=== PATIENT | male | born 1955 | race Caucasian/White ===

== ENCOUNTER → 2017-09-09 | Outpatient (REF) | payer BC ==
[~2017-09-09] MED LIST: ASPI1TAB PO; CHLO25TA PO; LISI-538 PO; RANI15TA PO
[2017-09-09 12:32] LABS: ALBUMIN 3.6 GM/DL (3.2-5.2); ALKALINE PHOSPHATASE 78 U/L (45-117); ALT/SGPT 23 U/L (12-78); ANION GAP 7 MEQ/L (8-16); AST/SGOT 9 U/L (7-37); BILIRUBIN,TOTAL 0.3 MG/DL (0.2-1.0); BLOOD UREA NITROGEN 15 MG/DL (7-18); CALCIUM LEVEL 8.8 MG/DL (8.8-10.2); CARBON DIOXIDE LEVEL 26 MEQ/L (21-32); CHLORIDE LEVEL 108 MEQ/L (98-107); CHOLESTEROL LEVEL 134 MG/DL (<200); GLOMERULAR FILTRATION RATE > 60.0 (>49); GLUCOSE, FASTING 111 MG/DL (80-110); POTASSIUM SERUM 4.6 MEQ/L (3.5-5.1); SODIUM LEVEL 141 MEQ/L (136-145); TOTAL PROTEIN 6.6 GM/DL (6.4-8.2); TRIGLYCERIDES LEVEL 60 MG/DL (<150)
== END ==
LOC: M SFHCCLAY 07:07
PROVIDERS: ATTEND Family Medicine
DX: I10 Essential (primary) hypertension (principal); Z12.5 Encounter for screening for malignant neoplasm of prostate; Z00.00 Encounter for general adult medical examination without abnormal findings
CPT/HCPCS: 80053; 80061; 84443; G0103

== ENCOUNTER → 2018-03-31 | Outpatient (REF) | payer BC ==
[2018-03-31 13:04] LABS: ALBUMIN 3.9 GM/DL (3.2-5.2); ALBUMIN/GLOBULIN RATIO 1.34 (1.00-1.93); ALKALINE PHOSPHATASE 85 U/L (45-117); ALT/SGPT 23 U/L (12-78); ANION GAP 11 MEQ/L (8-16); AST/SGOT 16 U/L (7-37); BILIRUBIN,TOTAL 0.5 MG/DL (0.2-1.0); BLOOD UREA NITROGEN 21 MG/DL (7-18); CARBON DIOXIDE LEVEL 23 MEQ/L (21-32); CHLORIDE LEVEL 104 MEQ/L (98-107); CHOLESTEROL LEVEL 116 MG/DL (<200); CHOLESTEROL RISK RATIO 3.515 (<5); CREATININE FOR GFR 0.93 MG/DL (0.70-1.30); GLOMERULAR FILTRATION RATE > 60.0 (>49); GLUCOSE, FASTING 110 MG/DL (70-100); HDL CHOLESTEROL 33 MG/DL (>40); LDL CHOLESTEROL 68.6 MG/DL (<100); NON-HDL-C 83 MG/DL; POTASSIUM SERUM 4.3 MEQ/L (3.5-5.1); PSA SCREENING 1.92 NG/ML (< 4.0); SODIUM LEVEL 138 MEQ/L (136-145); TOTAL PROTEIN 6.8 GM/DL (6.4-8.2); TRIGLYCERIDES LEVEL 72 MG/DL (<150)
[2018-03-31 18:22] LABS: HEMATOCRIT 43.3 % (42.0-52.0); HEMOGLOBIN 15.2 g/dl (13.5-17.5); MEAN CORPUSCULAR HEMOGLOBIN 31.8 pg (27.0-33.0); MEAN CORPUSCULAR HGB CONC 35.1 g/dl (32.0-36.5); MEAN CORPUSCULAR VOLUME 90.6 fl (80.0-96.0); PLATELET COUNT, AUTOMATED 156 10^3/uL (150-450); RED BLOOD COUNT 4.78 10^6/uL (4.30-6.10); RED CELL DISTRIBUTION WIDTH 12.4 % (11.5-14.5); WHITE BLOOD COUNT 6.3 10^3/uL (4.0-10.0)
== END ==
LOC: M SFHCCLAY 07:10
DX: K30 Functional dyspepsia (principal); I10 Essential (primary) hypertension; E78.6 Lipoprotein deficiency; Z12.5 Encounter for screening for malignant neoplasm of prostate
CPT/HCPCS: 80053

== ENCOUNTER → 2019-03-30 | Outpatient (REF) | payer BC ==
[~2019-03-30] MED LIST changes: -ASPI1TAB PO; +ASPI81TA26 PO; +CHLO125TA PO; -CHLO25TA PO
[2019-03-30 13:24] LABS: ALBUMIN 3.7 GM/DL (3.2-5.2); ALT/SGPT 27 U/L (12-78); BILIRUBIN,TOTAL 0.5 MG/DL (0.2-1.0); BLOOD UREA NITROGEN 15 MG/DL (7-18); CALCIUM LEVEL 8.9 MG/DL (8.8-10.2); CARBON DIOXIDE LEVEL 27 MEQ/L (21-32); CHLORIDE LEVEL 101 MEQ/L (98-107); CHOLESTEROL LEVEL 117 MG/DL (<200); CHOLESTEROL RISK RATIO 3.078 (<5); GLOMERULAR FILTRATION RATE > 60.0 (>49); GLUCOSE, FASTING 113 MG/DL (70-100); HDL CHOLESTEROL 38 MG/DL (>40); LDL CHOLESTEROL 64 MG/DL (<100); NON-HDL-C 79 MG/DL; POTASSIUM SERUM 4.3 MEQ/L (3.5-5.1); SODIUM LEVEL 136 MEQ/L (136-145); TOTAL PROTEIN 6.7 GM/DL (6.4-8.2); TRIGLYCERIDES LEVEL 73 MG/DL (<150)
== END ==
LOC: M SFHCCLAY 07:08
PROVIDERS: ATTEND Family Medicine
DX: I10 Essential (primary) hypertension (principal)
CPT/HCPCS: 80053; 80061; G0103

== ENCOUNTER → 2019-05-14 | Outpatient (REF) | payer BC ==
[2019-05-14 14:06] LABS: BASO % 0.3 % (0.0-1.0); EOS # 0.1 10^3/uL (0.0-0.50); EOS % 1.4 % (0.0-3.0); HEMATOCRIT 47.5 % (42.0-52.0); HEMOGLOBIN 16.6 g/dl (13.5-17.5); LYMPH # 1.5 10^3/uL (1.5-4.5); LYMPH % 25.9 % (24.0-44.0); MEAN CORPUSCULAR HEMOGLOBIN 31.6 pg (27.0-33.0); MEAN CORPUSCULAR HGB CONC 34.9 g/dl (32.0-36.5); MEAN CORPUSCULAR VOLUME 90.3 fl (80.0-96.0); MONO # 0.3 10^3/uL (0.0-0.8); MONO % 5.2 % (0.0-5.0); NEUTROPHILS # 3.9 10^3/uL (1.8-7.7); NEUTROPHILS % 66.5 % (36.0-66.0); PLATELET COUNT, AUTOMATED 115 10^3/uL (150-450); RED BLOOD COUNT 5.26 10^6/uL (4.30-6.10); WHITE BLOOD COUNT 5.8 10^3/uL (4.0-10.0)
[2019-05-14 14:27] LABS: ERYTHROCYTE SEDIMENTATION RATE 1 mm/hr (0-20)
[2019-05-14 14:34] LABS: RHEUMATOID FACTOR QUANT < 10.0 IU/ML (<15.0)
[2019-05-15 14:07] LABS: ANTINUCLEAR ANTIBODIES DIRECT Negative (Negative)
== END ==
LOC: M SFHCCLAY 07:03
PROVIDERS: ATTEND Family Medicine
DX: M25.50 Pain in unspecified joint (principal)

== ENCOUNTER → 2019-11-01 | Outpatient (REF) | payer BC ==
[2019-11-01 12:46] LABS: ALBUMIN 4.1 GM/DL (3.2-5.2); ALT/SGPT 28 U/L (12-78); BILIRUBIN,TOTAL 0.6 MG/DL (0.2-1.0); BLOOD UREA NITROGEN 17 MG/DL (7-18); CALCIUM LEVEL 9.1 MG/DL (8.8-10.2); CARBON DIOXIDE LEVEL 25 MEQ/L (21-32); CHLORIDE LEVEL 104 MEQ/L (98-107); CHOLESTEROL LEVEL 128 MG/DL (<200); CHOLESTEROL RISK RATIO 3.657 (<5); CREATININE FOR GFR 0.94 MG/DL (0.70-1.30); GLOMERULAR FILTRATION RATE > 60.0 (>49); GLUCOSE, FASTING 105 MG/DL (70-100); HDL CHOLESTEROL 35 MG/DL (>40); LDL CHOLESTEROL 64 MG/DL (<100); NON-HDL-C 93 MG/DL; POTASSIUM SERUM 4.4 MEQ/L (3.5-5.1); SODIUM LEVEL 136 MEQ/L (136-145); TRIGLYCERIDES LEVEL 143 MG/DL (<150)
== END ==
LOC: M SFHCCLAY 07:13
PROVIDERS: ATTEND Family Medicine
DX: I10 Essential (primary) hypertension (principal); E78.00 Pure hypercholesterolemia, unspecified

== ENCOUNTER → 2020-05-01 | Outpatient (REF) | payer BC ==
[2020-05-01 11:56] LABS: APPEARANCE, URINE CLEAR (CLEAR); BACTERIA, URINE AUTO NEGATIVE (NEGATIVE); BILIRUBIN, URINE AUTO NEGATIVE (NEGATIVE); BLOOD, URINE BLOOD 1+ (NEGATIVE); COLOR, URINE YELLOW (YELLOW); GLUCOSE, URINE (UA) AUTO NEGATIVE (NEGATIVE); KETONE, URINE AUTO NEGATIVE (NEGATIVE); LEUKOCYTE ESTERASE, URINE AUTO NEGATIVE (NEGATIVE); NITRITE, URINE AUTO NEGATIVE (NEGATIVE); PROTEIN, URINE AUTO NEGATIVE (NEGATIVE); RBC, URINE AUTO 3 /HPF (0-3); SPECIFIC GRAVITY URINE AUTO 1.011 (1.002-1.035); SQUAMOUS EPITHELIAL CELL UR AU 0 /HPF (0-6); UROBILINOGEN, URINE AUTO 0.2 mg/dL (0.0-2.0); WBC, URINE AUTO 0 /HPF (0-3)
[2020-05-01 11:59] LABS: BASO % 0.3 % (0.0-1.0); EOS # 0.1 10^3/uL (0.0-0.5); HEMATOCRIT 44.8 % (42.0-52.0); LYMPH # 1.4 10^3/uL (1.5-5.0); LYMPH % 23.8 % (24.0-44.0); MEAN CORPUSCULAR HEMOGLOBIN 31.9 pg (27.0-33.0); MEAN CORPUSCULAR HGB CONC 35.7 g/dl (32.0-36.5); MEAN CORPUSCULAR VOLUME 89.4 fl (80.0-96.0); MONO # 0.3 10^3/uL (0.0-0.8); MONO % 4.7 % (0.0-5.0); NEUTROPHILS # 4.1 10^3/uL (1.5-8.5); NEUTROPHILS % 68.7 % (36.0-66.0); PLATELET COUNT, AUTOMATED 131 10^3/uL (150-450); RED BLOOD COUNT 5.01 10^6/uL (4.30-6.10)
[2020-06-04 10:29] LABS: ERYTHROCYTE SEDIMENTATION RATE 5 mm/hr (0-20)
[2020-06-25 13:22] LABS: ANA (HEP2) SEE SEPARATE REPORT; CYCLIC CITRULLINATED PEPTIDE See Separate Report UNITS; Lyme Disease IgG/IgM Antibodie See Separate Report
== END ==
LOC: M SFHCCLAY 07:06
PROVIDERS: ATTEND Physician Assistant
DX: Z01.84 Encounter for antibody response examination (principal); I10 Essential (primary) hypertension; M25.50 Pain in unspecified joint; R73.01 Impaired fasting glucose; Z12.5 Encounter for screening for malignant neoplasm of prostate
CPT/HCPCS: 80053; 80061; 81001; 82306; 82607; 82746; 83036; 84439; 84443; 85025; 85652; 86038; 86140; 86200; 86431; 86617; 86769; G0103

== ENCOUNTER → 2020-09-15 | Outpatient (REF) | payer BC ==
[2020-09-15 11:27] LABS: BASO % 0.3 % (0.0-1.0); EOS # 0.2 10^3/uL (0.0-0.5); HEMOGLOBIN 15.7 g/dl (13.5-17.5); LYMPH # 1.6 10^3/uL (1.5-5.0); LYMPH % 27.5 % (24.0-44.0); MEAN CORPUSCULAR HEMOGLOBIN 30.7 pg (27.0-33.0); MEAN CORPUSCULAR HGB CONC 34.1 g/dl (32.0-36.5); MONO # 0.4 10^3/uL (0.0-0.8); NEUTROPHILS # 3.7 10^3/uL (1.5-8.5); NEUTROPHILS % 62.7 % (36.0-66.0); PLATELET COUNT, AUTOMATED 133 10^3/uL (150-450); RED BLOOD COUNT 5.11 10^6/uL (4.30-6.10)
[2020-09-15 12:06] LABS: HEMOGLOBIN A1c 5.4 %
[2020-09-15 12:09] LABS: ALBUMIN 3.9 GM/DL (3.2-5.2); ALT/SGPT 33 U/L (12-78); BILIRUBIN,TOTAL 0.5 MG/DL (0.2-1.0); BLOOD UREA NITROGEN 20 MG/DL (7-18); CALCIUM LEVEL 9.5 MG/DL (8.8-10.2); CARBON DIOXIDE LEVEL 26 MEQ/L (21-32); CHLORIDE LEVEL 104 MEQ/L (98-107); CHOLESTEROL LEVEL 130 MG/DL (<200); CHOLESTEROL RISK RATIO 3.714 (<5); CREATININE FOR GFR 0.94 MG/DL (0.70-1.30); GLOMERULAR FILTRATION RATE > 60.0 (>49); GLUCOSE, FASTING 101 MG/DL (70-100); HDL CHOLESTEROL 35 MG/DL (>40); LDL CHOLESTEROL 67 MG/DL (<100); NON-HDL-C 95 MG/DL; POTASSIUM SERUM 4.2 MEQ/L (3.5-5.1); SODIUM LEVEL 136 MEQ/L (136-145); TOTAL PROTEIN 6.9 GM/DL (6.4-8.2); TRIGLYCERIDES LEVEL 139 MG/DL (<150)
== END ==
LOC: M SFHCCLAY 07:16
PROVIDERS: ATTEND Physician Assistant
DX: I10 Essential (primary) hypertension (principal); R73.01 Impaired fasting glucose

== ENCOUNTER → 2020-11-24 | Outpatient (REF) | payer MEDICARE, BC ==
[~2020-11-24] MED LIST changes: -LISI-538 PO; +LISI20TA33 PO
[2020-11-24 12:38] LABS: APPEARANCE, URINE CLEAR (CLEAR); BACTERIA, URINE AUTO NEGATIVE (NEGATIVE); BILIRUBIN, URINE AUTO NEGATIVE (NEGATIVE); BLOOD, URINE BLOOD NEGATIVE (NEGATIVE); COLOR, URINE YELLOW (YELLOW); GLUCOSE, URINE (UA) AUTO NEGATIVE (NEGATIVE); KETONE, URINE AUTO NEGATIVE (NEGATIVE); LEUKOCYTE ESTERASE, URINE AUTO NEGATIVE (NEGATIVE); MUCUS, URINE SMALL (NEGATIVE); NITRITE, URINE AUTO NEGATIVE (NEGATIVE); PROTEIN, URINE AUTO NEGATIVE (NEGATIVE); RBC, URINE AUTO 0 /HPF (0-3); SPECIFIC GRAVITY URINE AUTO 1.017 (1.002-1.035); SQUAMOUS EPITHELIAL CELL UR AU 0 /HPF (0-6); WBC, URINE AUTO 0 /HPF (0-3)
== END ==
LOC: M SFHCCLAY 07:35
PROVIDERS: ATTEND Physician Assistant
DX: R35.0 Frequency of micturition (principal)
CPT/HCPCS: 81001; 87086; G0463

== ENCOUNTER → 2021-02-09 | Outpatient (REF) | payer MEDICARE, BC ==
[2021-02-09 11:52] LABS: BASO % 0.5 % (0.0-1.0); EOS # 0.2 10^3/uL (0.0-0.5); EOS % 2.3 % (0.0-3.0); HEMOGLOBIN 16.3 g/dl (13.5-17.5); LYMPH # 1.9 10^3/uL (1.5-5.0); MEAN CORPUSCULAR HEMOGLOBIN 31.2 pg (27.0-33.0); MEAN CORPUSCULAR HGB CONC 34.7 g/dl (32.0-36.5); MONO # 0.4 10^3/uL (0.0-0.8); MONO % 4.8 % (2.0-8.0); NEUTROPHILS # 4.9 10^3/uL (1.5-8.5); PLATELET COUNT, AUTOMATED 147 10^3/uL (150-450); RED BLOOD COUNT 5.22 10^6/uL (4.30-6.10); WHITE BLOOD COUNT 7.5 10^3/uL (4.0-10.0)
[2021-02-09 15:32] LABS: ALBUMIN 4.2 GM/DL (3.2-5.2); ALT/SGPT 33 U/L (12-78); BILIRUBIN,TOTAL 0.5 MG/DL (0.2-1.0); BLOOD UREA NITROGEN 20 MG/DL (7-18); CALCIUM LEVEL 9.9 MG/DL (8.8-10.2); CARBON DIOXIDE LEVEL 27 MEQ/L (21-32); CHLORIDE LEVEL 102 MEQ/L (98-107); CHOLESTEROL LEVEL 150 MG/DL (<200); CREATININE FOR GFR 0.97 MG/DL (0.70-1.30); GLOMERULAR FILTRATION RATE > 60.0 (>49); GLUCOSE, FASTING 119 MG/DL (70-100); HDL CHOLESTEROL 40 MG/DL (>40); LDL CHOLESTEROL 81 MG/DL (<100); NON-HDL-C 110 MG/DL; SODIUM LEVEL 137 MEQ/L (136-145); TOTAL 25(OH) VITAMIN D 28.9 NG/ML (30.0-100.0); TOTAL PROTEIN 6.8 GM/DL (6.4-8.2); TRIGLYCERIDES LEVEL 145 MG/DL (<150)
[2021-02-09 17:43] LABS: HEMOGLOBIN A1c 5.1 %
== END ==
LOC: M SFHCCLAY 07:01
PROVIDERS: ATTEND Physician Assistant
DX: D69.6 Thrombocytopenia, unspecified (principal); R73.01 Impaired fasting glucose; E55.9 Vitamin D deficiency, unspecified; E78.00 Pure hypercholesterolemia, unspecified

== ENCOUNTER → 2021-05-06 | Outpatient (CLI) | payer MEDICARE, BC ==
--- NOTE | 2021-05-06 13:45 | REP ---
INDICATION: ENCOUNTER FOR SCREENING FOR LUNG CA. COMPARISON: None. TECHNIQUE: Axial noncontrast images from the thoracic inlet to the upper abdomen using low-dose lung screening technique (LDCT). As per the protocol only lung window images were sent to the read station for interpretation. FINDINGS: There is mild to moderate scattered bilateral calcific pleural plaque formation and seen heaviest in the lung bases. There are no abnormal nodules or parenchymal masses. Grossly, the mediastinum and pulmonary sylvia are within normal limits. Grossly, the imaged upper abdomen and imaged osseous structures are within normal limits. IMPRESSION: Lung rads category 2 exam. Calcific pleural plaquing. No abnormal nodule noted. Yearly screening recommended. <Electronically signed by Jermaine Vazquez > 05/06/21 [id number]
== END ==
LOC: M RAD 12:40
PROVIDERS: ATTEND Physician Assistant
DX: Z12.2 Encounter for screening for malignant neoplasm of respiratory organs (principal); F17.210 Nicotine dependence, cigarettes, uncomplicated; J92.9 Pleural plaque without asbestos; Z87.891 Personal history of nicotine dependence

== ENCOUNTER → 2021-08-26 | Outpatient (REF) | payer MEDICARE, BC ==
[~2021-08-26] MED LIST changes: +CHLO25TA PO; +FAMO20TA PO; +MOBI4TAB PO
[2021-08-26 16:26] LABS: BASO # 0.1 10^3/uL (0.0-0.2); BASO % 0.6 % (0.0-1.0); EOS # 0.2 10^3/uL (0.0-0.5); EOS % 2.5 % (0.0-3.0); HEMATOCRIT 45.7 % (42.0-52.0); HEMOGLOBIN 16.1 g/dl (13.5-17.5); LYMPH # 1.6 10^3/uL (1.5-5.0); LYMPH % 17.2 % (24.0-44.0); MEAN CORPUSCULAR HGB CONC 35.2 g/dl (32.0-36.5); MEAN CORPUSCULAR VOLUME 88.1 fl (80.0-96.0); MONO # 0.5 10^3/uL (0.0-0.8); MONO % 5.4 % (2.0-8.0); NEUTROPHILS # 6.7 10^3/uL (1.5-8.5); NEUTROPHILS % 73.7 % (36.0-66.0); PLATELET COUNT, AUTOMATED 156 10^3/uL (150-450); RED BLOOD COUNT 5.19 10^6/uL (4.30-6.10); WHITE BLOOD COUNT 9.1 10^3/uL (4.0-10.0)
[2021-08-26 16:53] LABS: ALBUMIN 3.9 GM/DL (3.2-5.2); ALT/SGPT 25 U/L (12-78); BILIRUBIN,TOTAL 0.4 MG/DL (0.2-1.0); BLOOD UREA NITROGEN 17 MG/DL (7-18); CALCIUM LEVEL 9.3 MG/DL (8.8-10.2); CARBON DIOXIDE LEVEL 24 MEQ/L (21-32); CHLORIDE LEVEL 103 MEQ/L (98-107); CHOLESTEROL LEVEL 139 MG/DL (<200); CHOLESTEROL RISK RATIO 3.309 (<5); CREATININE FOR GFR 0.89 MG/DL (0.70-1.30); GLOMERULAR FILTRATION RATE > 60.0 (>49); GLUCOSE, FASTING 99 MG/DL (70-100); HDL CHOLESTEROL 42 MG/DL (>40); LDL CHOLESTEROL 79 MG/DL (<100); NON-HDL-C 97 MG/DL; SODIUM LEVEL 135 MEQ/L (136-145); TOTAL PROTEIN 6.9 GM/DL (6.4-8.2); TRIGLYCERIDES LEVEL 90 MG/DL (<150)
[2021-08-26 16:54] LABS: TOTAL 25(OH) VITAMIN D 25.1 NG/ML (30.0-100.0)
[2021-08-26 17:46] LABS: HEMOGLOBIN A1c 5.5 %
== END ==
LOC: M SFHCCAPE 07:41
PROVIDERS: ATTEND Physician Assistant
DX: D69.6 Thrombocytopenia, unspecified (principal); R73.01 Impaired fasting glucose; E55.9 Vitamin D deficiency, unspecified; Z12.5 Encounter for screening for malignant neoplasm of prostate; Z79.899 Other long term (current) drug therapy; Z23 Encounter for immunization
CPT/HCPCS: 36415; 80053; 80061; 82306; 83036; 84443; 85025; 90682; 90732; 93005; G0008; G0009; G0103; G0463

== ENCOUNTER → 2021-08-28 | Outpatient (CLI) | payer MEDICARE, BC | LOC: M LABSMTC 09:34 | PROVIDERS: ATTEND Anesthesiology | DX: Z01.812 Encounter for preprocedural laboratory examination (principal); Z20.822 Contact with and (suspected) exposure to COVID-19 ==

== ENCOUNTER 2021-09-02 09:01 | Day surgery (SDC) | payer MEDICARE, BC ==
[~2021-09-02] VITALS: Ht 177.8 cm; Wt 111.9 kg
[~2021-09-02 09:01] MED LIST changes: +NS 1,000 ML IV ONE
--- OUTSIDE RECORDS SUMMARY | 2021-09-02 09:04 | CCD | Continuity of Care Document ---
Author Author Tommy HOLLIS M.D. Organization Unknown Address [address] [place] [address] Phone [phone] Care Team Providers Care Therapy Manager Name Role Phone Nohemi Messer N.P. AUTM [phone] Genesis Cheung PA-C AUTM [phone] Problems Active Problems Provider Date History of polyp of colon Rafia GuptaNMemo Onset: Benign neoplasm of colon Rafia GuptaNMemo Onset: Essential hypertension Onset: 08/08/2013 Screening for malignant neoplasm of colon Roverto howard M.D. Onset: 11/18/2015 Screening for malignant neoplasm of colon Roverto howard M.D. Onset: 11/18/2015 Social History Type Date Description Comments Sex Unknown ETOH Use Denies alcohol use Tobacco Use Start: Unknown Patient is a current smoker, smo kes every day Recreational Drug Use Sporadically uses Marijuan a Allergies and adverse reactions Description No Known Drug Allergies Medications Active Medications SIG Qnty Indications Ordering Provide r Date Suprep Bowel Prep Kit 17.5-3.13-1.6GM/177ML Solution use as directed 354ml Roverto Hollis M.D. 07/09/2021 Lisinopril 20mg Tablets Nohemi Messer,N.P. Chlorthalidone 25mg Tablets Nohemi Messer,N.P. Famotidine 20mg Tablets eGnesis Cheung PA-C Meloxicam 7.5mg Genesis Bates PA-C Immunizations Description No Information Available Vital Signs Date Vital Result Comment 07/09/2021 12:59pm Height 70 inches 5'10" Weight 250.00 lb BP Systolic 134 mmHg BP Diastolic 86 mmHg Heart Rate 78 /min BMI (Body Mass Index) 35.9 kg/m2 Weight 113.400 kg Body Temperature 96.8 F 11/18/2015 2:44pm Height 70 inches 5'10" Weight 256.00 lb BP Systolic 144 mmHg BP Diastolic 96 mmHg Heart Rate 83 /min BMI (Body Mass Index) 36.7 kg/m2 Weight 116.122 kg Results Description No Information Available Procedures Date Code Description Status 07/09/2021 71146 Office/Outpatient New Low MDM 30 -44 Minutes Completed Medical Devices Description No Information Available Encounters Type Date Location Provider Dx Diagnosis Office Visit 07/09/2021 1:30p Main Office Roverto Hollis M.D. Z 86.010 Personal history of colonic polyps Assessments Date Code Description Provider 07/09/2021 Z86.010 Personal history of colonic poly ps Roverto Hollis M.D. Plan of Treatment Future Appointment(s):* 08/19/2021 7:15 am - [place] at Main Office * 09/02/2021 10:45 am - Roverto Hollis M.D. at Main Office 07/09/2021 - Roverto Hollis M.D.* Z86.010 Personal history of colonic polyps* Comments:* 65 yo wm who presents for a repeat colonoscopy for adenomatous polyps in 2015. No weight loss, change in bowel habits, or rectal bleeding. No family h/o colon cancer. Plan:1.Schedule patient for Colonoscopy. 2. Informed consent given.3. Advised to stop asa, plavix,and anticoagulation 3 to 7 days prior to the procedures. Functional Status Description No Information Available Mental Status Description No Information Available Referrals Description No Information Available
--- OUTSIDE RECORDS SUMMARY | 2021-09-02 09:04 | CCD ---
Author Author [facility] Organization [facility] Address Unknown Phone Unavailable Care Team Providers Care Bread Wrapper Name Role Phone Timbo Hollis MD Unavailable Unavailable Timbo Hollis MD Unavailable Unavailable Timbo Hollis MD Unavailable Unavailable Timbo Hollis MD Unavailable Unavailable Timbo Hollis MD Unavailable Unavailable Timbo Hollis MD Unavailable Unavailable Timbo Hollis MD Unavailable Unavailable Timbo Hollis MD Unavailable Unavailable Timbo Hollis MD Unavailable Unavailable Timbo Hollis MD Unavailable Unavailable Timbo Hollis MD Unavailable Unavailable Timbo Hollis MD Unavailable Unavailable Timbo Hollis MD Unavailable Unavailable Timbo Hollis MD Unavailable Unavailable Timbo Hollis MD Unavailable Unavailable Timbo Hollis MD Unavailable Unavailable Timbo Hollis MD Unavailable Unavailable Timbo Hollis MD Unavailable Unavailable Timbo Hollis MD Unavailable Unavailable Timbo Hollis MD Unavailable Unavailable Timbo Hollis MD Unavailable Unavailable Timbo Hollis MD Unavailable Unavailable Timbo Hollis MD Unavailable Unavailable Timbo Hollis MD Unavailable Unavailable Timbo Hollis MD Unavailable Unavailable Timbo Hollis MD Unavailable Unavailable Timbo Hollis MD Unavailable Unavailable Timbo Hollis MD Unavailable Unavailable Timbo Hollis MD Unavailable Unavailable Timbo Hollis MD Unavailable Unavailable Timbo Hollis MD Unavailable Unavailable Timbo Hollis MD Unavailable Unavailable Timbo Hollis MD Unavailable Unavailable Timbo Hollis MD Unavailable Unavailable Bunny, S Roverto MD Unavailable Unavailable Bunny, S Roverto MD Unavailable Unavailable Bunny, S Roverto MD Unavailable Unavailable Bunny, S Roverto MD Unavailable Unavailable Bunny, S Roverto MD Unavailable Unavailable Bunny, S Roverto MD Unavailable Unavailable Bunny, S Roverto MD Unavailable Unavailable Bunny, S Roverto MD Unavailable Unavailable Bunny, S Roverto MD Unavailable Unavailable Bunny, S Roverto MD Unavailable Unavailable Bunny, S Roverto MD Unavailable Unavailable Bunny, S Roverto MD Unavailable Unavailable Bunny, S Roverto MD Unavailable Unavailable Bunny, S Roverto MD Unavailable Unavailable Bunny, S Roverto MD Unavailable Unavailable Bunny, S Roverto MD Unavailable Unavailable Bunny, S Roverto MD Unavailable Unavailable Re-disclosure Warning The records that you are about to access may contain information from federally-assisted alcohol or drug abuse programs. If such information is present, then the following federally mandated warning applies: This information has been disclosed to you from records protected by federal confidentiality rules (42 CFR part 2). The federal rules prohibit you from making any further disclosure of this information unless further disclosure is expressly permitted by the written consent of the person to whom it pertains or as otherwise permitted by 42 CFR part 2. A general authorization for the release of medical or other information is NOT sufficient for this purpose. The Federal rules restrict any use of the information to criminally investigate or prosecute any alcohol or drug abuse patient.The records that you are about to access may contain highly sensitive health information, the redisclosure of which is protected by Article 27-F of the [facility] Public Health law. If you continue you may have access to information: Regarding HIV / AIDS; Provided by facilities licensed or operated by the [facility] Office of Mental Health; or Provided by the [facility] Office for People With Developmental Disabilities. If such information is present, then the following [facility] mandated warning applies: This information has been disclosed to you from confidential records which are protected by state law. State law prohibits you from making any further disclosure of this information without the specific written consent of the person to whom it pertains, or as otherwise permitted by law. Any unauthorized further disclosure in violation of state law may result in a fine or half-way sentence or both. A general authorization for the release of medical or other information is NOT sufficient authorization for further disc losure. Family History Family Member Name Family Member Gender Family Member Status Date o f Status Description Data Source(s) Unknown Unknown Problem MEDENT ([facility] ) Unknown Female Problem MEDENT ([facility]) Encounters Encounter Providers Location Date Indications Data Source(s ) Outpatient Attender: Roverto Hollis MD Main Office 07/09/2021 01:30:00 PM EDT MEDENT ([facility]) Unknown [address] [facility] [place] [address] 03/18/2021 12:00:00 AM EDT eCW1 ([facility]) Unknown [address] [facility] [place] [address] 03/16/2021 12:00:00 AM EDT eCW1 ([facility]) Outpatient [address] [facility] [place] [address] 02/23/2021 12:00:00 AM EDT eCW1 ([facility]) Unknown [address] [facility] [place] [address] 02/23/2021 12:00:00 AM EDT eCW1 ([facility]) [place] [address] [facility] [place] [address] 02/10/2021 12:00:00 AM EDT eCW1 ([facility]) Unknown [address] [facility] [place] [address] 01/27/2021 12:00:00 AM EDT eCW1 ([facility]) Outpatient [address] [facility] [place] [address] 11/24/2020 12:00:00 AM EST eCW1 ([facility]) Unknown [address] [facility] [place] [address] 09/30/2020 12:00:00 AM EST eCW1 ([facility]) Outpatient [address] [facility] [place] [address] 09/22/2020 12:00:00 AM EST eCW1 ([facility]) Unknown [address] [facility] [place] [address] 09/15/2020 12:00:00 AM EST eCW1 ([facility]) [place] [address] [facility] [place] [address] 08/18/2020 12:00:00 AM EST eCW1 ([facility]) [place] [address] [facility] [place] [address] 08/08/2020 12:00:00 AM EDT eCW1 ([facility]) [place] [address] [facility] [place] [address] 07/17/2020 12:00:00 AM EDT eCW1 ([facility]) [place] [address] [facility] [place] [address] 07/17/2020 12:00:00 AM EDT eCW1 ([facility]) Immunizations Vaccine Date Status Description Data Source(s) COVID-19 VACCINE Moderna 08/17/2021 12:00:00 AM EST completed [facility] Vaccine Series Complete: YESThis Data wa s Submitted to [facility] Via [employer]. Moderna #2 dose COVID-19(given elsewhere) SARSCOV2 VAC 100MCG/0.5ML IM 01/13/2021 02:10:00 PM EDT completed eCW1 ([facility]) Moderna #2 dose COVID-19(given elsewhere) SARSCOV2 VAC 100MCG/0.5ML IM 01/13/2021 02:10:00 PM EDT completed eCW1 ([facility]) Moderna #2 dose COVID-19(given elsewhere) SARSCOV2 VAC 100MCG/0.5ML IM 01/13/2021 02:10:00 PM EDT completed eCW1 ([facility]) COVID-19 VACCINE Moderna 01/13/2021 12:00:00 AM EDT completed [facility] Vaccine Series Complete: YESThis Data wa s Submitted to [facility] Via [employer]. COVID-19 VACCINE, MRNA-1273, LNP-S (MODERNA)/PF 01/13/2021 1 2:00:00 AM EDT completed [facility] Moderna #1 dose COVID-19(given elsewhere) SARSCOV2 VAC 100MCG/0.5ML IM 12/11/2020 02:09:00 PM EST completed eCW1 ([facility]) Moderna #1 dose COVID-19(given elsewhere) SARSCOV2 VAC 100MCG/0.5ML IM 12/11/2020 02:09:00 PM EST completed eCW1 ([facility]) Moderna #1 dose COVID-19(given elsewhere) SARSCOV2 VAC 100MCG/0.5ML IM 12/11/2020 02:09:00 PM EST completed eCW1 ([facility]) COVID-19 VACCINE, MRNA-1273, LNP-S (MODERNA)/PF 12/11/2020 1 2:00:00 AM EST completed [facility] COVID-19 VACCINE Moderna 12/11/2020 12:00:00 AM EST completed [facility] Vaccine Series Complete: NOThis Data was Submitted to [facility] Via [email or web address]. Tdap 09/22/2020 10:01:00 AM EST completed e CW1 ([facility]) Tdap 09/22/2020 10:01:00 AM EST completed e CW1 ([facility]) Tdap 09/22/2020 10:01:00 AM EST completed e CW1 ([facility]) Tdap 09/22/2020 10:01:00 AM EST completed e CW1 ([facility]) Tdap 09/22/2020 10:01:00 AM EST completed e CW1 ([facility]) Tdap 09/22/2020 10:01:00 AM EST completed e CW1 ([facility]) Tdap 09/22/2020 10:01:00 AM EST completed e CW1 ([facility]) Tdap 09/22/2020 10:01:00 AM EST completed e CW1 ([facility]) Tdap 09/22/2020 10:01:00 AM EST completed e CW1 ([facility]) influenza, recombinant, quadrIvalent,injectable, prese rvative free 09/22/2020 09:59:00 AM EST completed eCW1 ([facility]) influenza, recombinant, quadrIvalent,injectable, prese rvative free 09/22/2020 09:59:00 AM EST completed eCW1 ([facility]) influenza, recombinant, quadrIvalent,injectable, prese rvative free 09/22/2020 09:59:00 AM EST completed eCW1 ([facility]) influenza, recombinant, quadrIvalent,injectable, prese rvative free 09/22/2020 09:59:00 AM EST completed eCW1 ([facility]) influenza, recombinant, quadrIvalent,injectable, prese rvative free 09/22/2020 09:59:00 AM EST completed eCW1 ([facility]) influenza, recombinant, quadrIvalent,injectable, prese rvative free 09/22/2020 09:59:00 AM EST completed eCW1 ([facility]) influenza, recombinant, quadrIvalent,injectable, prese rvative free 09/22/2020 09:59:00 AM EST completed eCW1 ([facility]) influenza, recombinant, quadrIvalent,injectable, prese rvative free 09/22/2020 09:59:00 AM EST completed eCW1 ([facility]) influenza, recombinant, quadrIvalent,injectable, prese rvative free 09/22/2020 09:59:00 AM EST completed eCW1 ([facility]) Medications Medication Brand Name Start Date Product Form Dose Route Admi nistrative Instructions Pharmacy Instructions Status Indications Reaction Description Data Source(s) SUPREP BOWEL PREP KIT 17.5-3.13-1.6 gram SODIUM, POTASSIUM,M AG SULFATES 07/09/2021 12:00:00 AM EDT recon soln 354 USE DIRECTED USE DIRECTED SOLD: 07/09/2021 [facility] Suprep Bowel Prep Kit Suprep Bowel Prep Kit 07/09/2021 12:00:00 AM EDT active MEDENT ([facility]) Chantix Starting Month Adrian 0.5 MG X 11 & 1 MG X 42 Alana ntix Starting Month Adrian 0.5 MG X 11 & 1 MG X 42 02/23/2021 12:00:00 AM EDT active Chantix Starting Month Adrian 0.5 MG X 11 & 1 MG X 42 eCW1 ([facility]) Chantix Starting Month Adrian 0.5 MG X 11 & 1 MG X 42 Alana ntix Starting Month Adrian 0.5 MG X 11 & 1 MG X 42 02/23/2021 12:00:00 AM EDT active Chantix Starting Month Adrian 0.5 MG X 11 & 1 MG X 42 eCW1 ([facility]) Chantix Starting Month Adrian 0.5 MG X 11 & 1 MG X 42 Alana ntix Starting Month Adrian 0.5 MG X 11 & 1 MG X 42 02/23/2021 12:00:00 AM EDT active eCW1 ([facility]) Chantix Starting Month Adrian 0.5 MG X 11 & 1 MG X 42 Alana ntix Starting Month Adrian 0.5 MG X 11 & 1 MG X 42 02/23/2021 12:00:00 AM EDT active Chantix Starting Month Adrian 0.5 MG X 11 & 1 MG X 42 eCW1 ([facility]) Chantix Starting Month Adrian 0.5 MG X 11 & 1 MG X 42 Alana ntix Starting Month Adrian 0.5 MG X 11 & 1 MG X 42 02/23/2021 12:00:00 AM EDT active Chantix Starting Month Adrian 0.5 MG X 11 & 1 MG X 42 eCW1 ([facility]) Ergocalciferol 00971 UNT Oral Capsule Ergocalciferol 1 .25 MG (39886 UT) Ergocalciferol 1.25 MG (47144 UT) 07/15/2020 12:00:00 AM EDT 1.0 {c apsule} active Ergocalciferol 1.25 MG (5 0000 UT) eCW1 ([facility]) Ergocalciferol 63412 UNT Oral Capsule Ergocalciferol 1 .25 MG (75868 UT) Ergocalciferol 1.25 MG (38092 UT) 07/15/2020 12:00:00 AM EDT 1.0 {c apsule} active Ergocalciferol 1.25 MG (5 0000 UT) eCW1 ([facility]) 12 HR Bupropion Hydrochloride 90 MG / Na ltrexone hydrochloride 8 MG Extended Release Oral Tablet [Contrave] Contrave 8-90 MG Contrave 8-90 MG 2019 12:00:00 AM EDT active Contrave 8-90 MG eCW1 ([facility]) Ergocalciferol 02635 UNT Oral Capsule Ergocalciferol 1 .25 MG (69793 UT) Ergocalciferol 1.25 MG (87665 UT) 07/15/2020 12:00:00 AM EDT 1.0 {c apsule} active Ergocalciferol 1.25 MG (5 0000 UT) eCW1 ([facility]) 12 HR Bupropion Hydrochloride 90 MG / Na ltrexone hydrochloride 8 MG Extended Release Oral Tablet [Contrave] Contrave 8-90 MG Contrave 8-90 MG 2019 12:00:00 AM EDT active Contrave 8-90 MG eCW1 ([facility]) 12 HR Bupropion Hydrochloride 90 MG / Na ltrexone hydrochloride 8 MG Extended Release Oral Tablet [Contrave] Contrave 8-90 MG Contrave 8-90 MG 2019 12:00:00 AM EDT active Contrave 8-90 MG eCW1 ([facility]) Ergocalciferol 75454 UNT Oral Capsule Ergocalciferol 1 .25 MG (32169 UT) Ergocalciferol 1.25 MG (06038 UT) 07/15/2020 12:00:00 AM EDT 1.0 {c apsule} active Ergocalciferol 1.25 MG (5 0000 UT) eCW1 ([facility]) Ergocalciferol 35812 UNT Oral Capsule Ergocalciferol 1 .25 MG (83093 UT) Ergocalciferol 1.25 MG (02737 UT) 07/15/2020 12:00:00 AM EDT 1.0 {c apsule} active Ergocalciferol 1.25 MG (5 0000 UT) eCW1 ([facility]) 12 HR Bupropion Hydrochloride 90 MG / Na ltrexone hydrochloride 8 MG Extended Release Oral Tablet [Contrave] Contrave 8-90 MG Contrave 8-90 MG 2019 12:00:00 AM EDT active Contrave 8-90 MG eCW1 ([facility]) 12 HR Bupropion Hydrochloride 90 MG / Na ltrexone hydrochloride 8 MG Extended Release Oral Tablet [Contrave] Contrave 8-90 MG Contrave 8-90 MG 2019 12:00:00 AM EDT active Contrave 8-90 MG eCW1 ([facility]) 12 HR Bupropion Hydrochloride 90 MG / Na ltrexone hydrochloride 8 MG Extended Release Oral Tablet [Contrave] Contrave 8-90 MG Contrave 8-90 MG 2019 12:00:00 AM EDT 2.0 {tablets} active C ontrave 8-90 MG eCW1 ([facility]) Ergocalciferol 64314 UNT Oral Capsule Ergocalciferol 1 .25 MG (62445 UT) Ergocalciferol 1.25 MG (56406 UT) 07/15/2020 12:00:00 AM EDT 1.0 {c apsule} active Ergocalciferol 1.25 MG (5 0000 UT) eCW1 ([facility]) 12 HR Bupropion Hydrochloride 90 MG / Na ltrexone hydrochloride 8 MG Extended Release Oral Tablet [Contrave] Contrave 8-90 MG Contrave 8-90 MG 2019 12:00:00 AM EDT active Contrave 8-90 MG eCW1 ([facility]) Ergocalciferol 51740 UNT Oral Capsule Ergocalciferol 1 .25 MG (35714 UT) Ergocalciferol 1.25 MG (32911 UT) 07/15/2020 12:00:00 AM EDT 1.0 {c apsule} active Ergocalciferol 1.25 MG (5 0000 UT) eCW1 ([facility]) 12 HR Bupropion Hydrochloride 90 MG / Na ltrexone hydrochloride 8 MG Extended Release Oral Tablet [Contrave] Contrave 8-90 MG Contrave 8-90 MG 2019 12:00:00 AM EDT active Contrave 8-90 MG eCW1 ([facility]) Ergocalciferol 28011 UNT Oral Capsule Ergocalciferol 1 .25 MG (71354 UT) Ergocalciferol 1.25 MG (43644 UT) 07/15/2020 12:00:00 AM EDT 1.0 {c apsule} active Ergocalciferol 1.25 MG (5 0000 UT) eCW1 ([facility]) Ergocalciferol 57618 UNT Oral Capsule Ergocalciferol 1 .25 MG (11971 UT) Ergocalciferol 1.25 MG (46415 UT) 07/15/2020 12:00:00 AM EDT 1.0 {c apsule} active Ergocalciferol 1.25 MG (5 0000 UT) eCW1 ([facility]) Insurance Providers Payer name Policy type / Coverage type Policy ID Covered constitution party ID Covered constitution party's relationship to acosta Policy [place] Plan Information [place]/307 [id number] SP [id number] [place] Commercial [id number] Self [place]/307 [id number] SP [id number] [place] 302/307 [id number] SP [id number] [employer] BCBS B [id number] S TNS [id number] [place]/307 [id number] SP [id number] ANSI-Commercial [id number] ANSI-Commercial [id number] ANSI-Commercial [id number] ANSI-Commercial [id number] [employer] BCBS Health Maintenance Organization (HMO) [id number] Self [id number] ANSI-Commercial [id number] [facility] Health Maintenance Organization ([facility]) [id number] Self [id number] [facility] Health Maintenance Organization ([facility]) [id number] Self [id number] [facility] Health Maintenance Organization ([facility]) [id number] Self [id number] [place] 302/307 [id number] SP [id number] [place] 302/307 [id number] SP [id number] MEDICARE [id number] SP [id number] BCBS OF [place] 306/806 [id number] SP [id number] [place] PPO 302/307 [id number] SP [id number] Problems, Conditions, and Diagnoses Code Display Name Description Problem Type Effective Dates Data Source(s) K21.9 Gastroesophageal reflux disease Gastroes ophageal reflux disease, unspecified whether esophagitis present Problem 02/23/2021 12:00:00 AM EDT eCW1 ([facility]) F17.210 [id number] Cigarette nicotine dependence without com plication Problem 02/23/2021 12:00:00 AM EDT eCW1 ([facility]) J30.9 Allergic rhinitis Allergic rhinitis, u nspecified seasonality, unspecified trigger Problem 02/23/2021 12:00:00 AM EDT eCW1 ([facility]) E55.9 [id number] Vitamin D deficiency Problem 11/24/2020 12:0 0:00 AM EST eCW1 ([facility]) D69.6 Thrombocytopenia Thrombocytopenia Problem 11/24/2020 12 :00:00 AM EST eCW1 ([facility]) E66.9 [id number] Obesity (BMI 30.0-34.9) Problem 1 11/23/2019 12:00:00 AM EST eCW1 ([facility]) Surgeries/Procedures Procedure Description Date Indications Data Source(s) OFFICE OUTPATIENT NEW 30 MINUTES 07/09/2021 12:00:00 A M EDT MEDENT ([facility]) PNEUMOCOCCAL POLYSAC VACCINE 23-V 2 />YR SUBQ/IM 02/23 12:00:00 AM EDT eCW1 ([facility]) Immunization: Boostrix 0.5mL IM (TDAP) 09/22/2020 12:0 0:00 AM EST eCW1 ([facility]) Immunization: Flublok Quadrivalent (18 years & older) 0.5mL IM (Influenza) 09/22/2020 12:00:00 AM EST eCW1 ([facility]) Results No Information Social History Code Duration Value Status Description Data Source(s ) Smoking 02/23/2021 12:00:00 AM EDT Current Smoker completed Curre nt Smoker eCW1 ([facility]) Smoking 02/23/2021 12:00:00 AM EDT Current Smoker completed Curre nt Smoker eCW1 ([facility]) Smoking 02/23/2021 12:00:00 AM EDT Current Smoker completed Curre nt Smoker eCW1 ([facility]) Smoking 02/23/2021 12:00:00 AM EDT Current Smoker completed Curre nt Smoker eCW1 ([facility]) Smoking 02/23/2021 12:00:00 AM EDT Current Smoker completed Curre nt Smoker eCW1 ([facility]) Smoking 11/24/2020 12:00:00 AM EST Current Smoker completed Curre nt Smoker eCW1 ([facility]) Smoking 11/24/2020 12:00:00 AM EST Current Smoker completed Curre nt Smoker eCW1 ([facility]) Smoking 09/22/2020 12:00:00 AM EST Current Smoker completed Curre nt Smoker eCW1 ([facility]) Smoking 09/22/2020 12:00:00 AM EST Current Smoker completed Curre nt Smoker eCW1 ([facility]) Vital Signs ID Date Data Source UNK Name Value Range Interpretation Code Description Data Source(s) Body height 70 [in_i] 70 [in_i] [facility] ([facility] 5'10" Body weight 250.00 [lb_av] 250.00 [lb_av] MEDEN T ([facility]) Systolic blood pressure 134 mm[Hg] 134 mm[Hg] M EDENT ([facility]) Diastolic blood pressure 86 mm[Hg] 86 mm[Hg] MEDENT ([facility]) Heart rate 78 /min 78 /min MEDENT ([facility]) Body mass index (BMI) [Ratio] 35.9 kg/m2 35.9 k g/m2 MEDENT ([facility]) Body weight 113.400 kg 113.400 kg MEDENT ([facility]) Body temperature 96.8 [degF] 96.8 [degF] MEDENT ([facility]) Body weight [lb_av] eCW1 ([facility]) Body height 70 [in_i] 70 [in_i] eCW1 ([facility]) Body mass index (BMI) [Ratio] 33.72 kg/m2 33.72 kg/m2 eCW1 ([facility]) Heart rate 74 /min 74 /min eCW1 ([facility]) Respiratory rate 18 /min 18 /min eCW1 ([facility]) Body temperature 98.3 [degF] 98.3 [degF] eCW1 ( [facility]) Systolic blood pressure 144 mm[Hg] 144 mm[Hg] e CW1 ([facility]) Diastolic blood pressure 81 mm[Hg] 81 mm[Hg] eCW1 ([facility]) Body weight [lb_av] eCW1 ([facility]) Body height 70 [in_i] 70 [in_i] eCW1 ([facility]) Body mass index (BMI) [Ratio] 33.86 kg/m2 33.86 kg/m2 eCW1 ([facility]) Heart rate 71 /min 71 /min eCW1 ([facility]) Respiratory rate 18 /min 18 /min eCW1 ([facility]) Body temperature 98.5 [degF] 98.5 [degF] eCW1 ( [facility]) Systolic blood pressure 139 mm[Hg] 139 mm[Hg] e CW1 ([facility]) Diastolic blood pressure 90 mm[Hg] 90 mm[Hg] eCW1 ([facility]) Body height 70 [in_i] 70 [in_i] [facility] ([facility]) 5'10" Body weight 250.00 [lb_av] 250.00 [lb_av] MEDEN T ([facility]) Body mass index (BMI) [Ratio] 35.9 kg/m2 35.9 k g/m2 [facility] ([facility]) [place] body weight 166 [lb_av] 166 [lb_av] MEDEN T ([facility]) Body weight 113.400 kg 113.400 kg [facility] ([facility]) Body surface area Derived from formula 2.29 m2 2.29 m2 [facility] ([facility]) Body weight [lb_av] eCW1 ([facility]) Body height 70 [in_i] 70 [in_i] eCW1 ([facility]) Body mass index (BMI) [Ratio] 36.15 kg/m2 36.15 kg/m2 W1 ([facility]) Heart rate 84 /min 84 /min eCW1 ([facility]) Respiratory rate 18 /min 18 /min eCW1 ([facility]) Body temperature 98.3 [degF] 98.3 [degF] eCW1 ( [facility]) Systolic blood pressure 144 mm[Hg] 144 mm[Hg] e CW1 ([facility]) Diastolic blood pressure 84 mm[Hg] 84 mm[Hg] eCW1 ([facility]) Patient Treatment Plan of Care Planned Activity Planned Date Details Description Data Source (s) Chantix Starting Month Adrian 0.5 MG X 11 & 1 MG X 42 02/23/2021 12 :00:00 AM EDT eCW1 ([facility]) Chantix Starting Month Adrian 0.5 MG X 11 & 1 MG X 42 02/23/2021 12 :00:00 AM EDT eCW1 ([facility]) Chantix Starting Month Adrian 0.5 MG X 11 & 1 MG X 42 02/23/2021 12 :00:00 AM EDT eCW1 ([facility]) Chantix Starting Month Adrian 0.5 MG X 11 & 1 MG X 42 02/23/2021 12 :00:00 AM EDT eCW1 ([facility]) Chantix Starting Month Adrian 0.5 MG X 11 & 1 MG X 42 02/23/2021 12 :00:00 AM EDT eCW1 ([facility]) 12 HR Bupropion Hydrochloride 90 MG / Na ltrexone hydrochloride 8 MG Extended Release Oral Tablet [Contrave] 07/15/2020 12:00:00 AM EDT eCW1 ([facility]) 12 HR Bupropion Hydrochloride 90 MG / Na ltrexone hydrochloride 8 MG Extended Release Oral Tablet [Contrave] 07/15/2020 12:00:00 AM EDT eCW1 ([facility]) 12 HR Bupropion Hydrochloride 90 MG / Na ltrexone hydrochloride 8 MG Extended Release Oral Tablet [Contrave] 07/15/2020 12:00:00 AM EDT eCW1 ([facility]) Ergocalciferol 57714 UNT Oral Capsule 07/15/2020 12:00:00 AM EDT eCW1 ([facility]) 12 HR Bupropion Hydrochloride 90 MG / Na ltrexone hydrochloride 8 MG Extended Release Oral Tablet [Contrave] 07/15/2020 12:00:00 AM EDT eCW1 ([facility]) Ergocalciferol 74226 UNT Oral Capsule 07/15/2020 12:00:00 AM EDT eCW1 ([facility]) 12 HR Bupropion Hydrochloride 90 MG / Na ltrexone hydrochloride 8 MG Extended Release Oral Tablet [Contrave] 07/15/2020 12:00:00 AM EDT eCW1 ([facility]) Ergocalciferol 07680 UNT Oral Capsule 07/15/2020 12:00:00 AM EDT eCW1 ([facility]) 12 HR Bupropion Hydrochloride 90 MG / Na ltrexone hydrochloride 8 MG Extended Release Oral Tablet [Contrave] 07/15/2020 12:00:00 AM EDT eCW1 ([facility]) Ergocalciferol 12350 UNT Oral Capsule 07/15/2020 12:00:00 AM EDT eCW1 ([facility]) 12 HR Bupropion Hydrochloride 90 MG / Na ltrexone hydrochloride 8 MG Extended Release Oral Tablet [Contrave] 07/15/2020 12:00:00 AM EDT eCW1 ([facility]) Ergocalciferol 39499 UNT Oral Capsule 07/15/2020 12:00:00 AM EDT eCW1 ([facility]) Ergocalciferol 48315 UNT Oral Capsule 07/15/2020 12:00:00 AM EDT eCW1 ([facility]) 12 HR Bupropion Hydrochloride 90 MG / Na ltrexone hydrochloride 8 MG Extended Release Oral Tablet [Contrave] 07/15/2020 12:00:00 AM EDT eCW1 ([facility])
[2021-09-02] MEDS ORDERED: propofoL 200 MG/20 ML VIAL As Ordered ONE (10:52)
--- NOTE | 2021-09-02 11:10 | ROOR ---
Patient Name: Tommy Solorio Procedure Date: 09/02/2021 10:51 AM Date of : 1955 Age: 65 Room: [facility] Gender: Male Note Status: Finalized Procedure: Total Colonoscopy to Cecum Indications: High risk colon cancer surveillance: Personal history of colonic polyps Providers: Roverto Hollis MD Referring MD: ICCI Camargo [id number] Requesting Provider: Medicines: Monitored Anesthesia Care Complications: No immediate complications. Procedure: Pre-Anesthesia Assessment: - The heart rate, respiratory rate, oxygen saturations, blood pressure, adequacy of pulmonary ventilation, and response to care were monitored throughout the procedure. The Colonoscope was introduced through the anus and advanced to the cecum, identified by appendiceal orifice and ileocecal valve. The colonoscopy was performed without difficulty. The patient tolerated the procedure well. The quality of the bowel preparation was excellent. Findings: The perianal and digital rectal examinations were normal. Non-bleeding internal hemorrhoids were found during retroflexion. The hemorrhoids were small and Grade I (internal hemorrhoids that do not prolapse). Scattered small-mouthed diverticula were found in the recto-sigmoid colon, sigmoid colon and descending colon. The exam was otherwise without abnormality on direct and retroflexion views. Impression: - Non-bleeding internal hemorrhoids. - Diverticulosis in the recto-sigmoid colon, in the sigmoid colon and in the descending colon. - The examination was otherwise normal on direct and retroflexion views. - No specimens collected. - The exam was otherwise normal to the cecum. Recommendation: - Patient has a contact number available for emergencies. The signs and symptoms of potential delayed complications were discussed with the patient. Return to normal activities tomorrow. Written discharge instructions were provided to the patient. - High fiber diet. - Discharge patient to home. - Continue present medications. - Repeat colonoscopy in 5 years for surveillance. - Return to referring physician. - The findings and recommendations were discussed with the patient. Procedure Code(s): --- Professional --- G0105, Colorectal cancer screening; colonoscopy on individual at high risk Diagnosis Code(s): --- Professional --- Z86.010, Personal history of colonic polyps K64.0, First degree hemorrhoids K57.30, Diverticulosis of large intestine without perforation or abscess without bleeding CPT copyright 2019 [employer]. All rights reserved. The codes documented in this report are preliminary and upon talent acquisition program manager review may be revised to meet current compliance requirements. Roverto Hollis MD Roverto Hollis MD 09/02/2021 11:10:02 AM Electronically signed by Roverto Hollis MD Number of Addenda: 0 Note Initiated On: 09/02/2021 10:51 AM Estimated Blood Loss: Estimated blood loss: none.
[2021-09-02 11:30] VITALS: BP 136/80
== END 2021-09-02 11:33 | disposition home or self-care (01) ==
LOC: M OPP 09:01
PROVIDERS: ATTEND Internal Medicine Gastroenterology
DX: K64.0 First degree hemorrhoids (principal); K57.30 Diverticulosis of large intestine without perforation or abscess without bleeding; I10 Essential (primary) hypertension; R06.83 Snoring; F17.200 Nicotine dependence, unspecified, uncomplicated; Z86.010 Personal history of colon polyps

== ENCOUNTER → 2022-02-24 | Outpatient (REF) | payer MEDICARE, BC ==
[~2022-02-24] MED LIST changes: -NS 1,000 ML IV ONE
[2022-02-24 15:44] LABS: BASO % 0.5 % (0.0-1.0); EOS # 0.2 10^3/uL (0.0-0.5); EOS % 3.2 % (0.0-3.0); HEMATOCRIT 46.3 % (42.0-52.0); HEMOGLOBIN 16.7 g/dl (13.5-17.5); LYMPH # 1.6 10^3/uL (1.5-5.0); LYMPH % 20.8 % (24.0-44.0); MEAN CORPUSCULAR HEMOGLOBIN 31.8 pg (27.0-33.0); MEAN CORPUSCULAR HGB CONC 36.1 g/dl (32.0-36.5); MEAN CORPUSCULAR VOLUME 88.2 fl (80.0-96.0); MONO # 0.4 10^3/uL (0.0-0.8); NEUTROPHILS # 5.2 10^3/uL (1.5-8.5); NEUTROPHILS % 69.8 % (36.0-66.0); PLATELET COUNT, AUTOMATED 165 10^3/uL (150-450); RED BLOOD COUNT 5.25 10^6/uL (4.30-6.10); WHITE BLOOD COUNT 7.5 10^3/uL (4.0-10.0)
[2022-02-24 16:06] LABS: ALBUMIN 4.1 GM/DL (3.2-5.2); ALT/SGPT 30 U/L (12-78); BILIRUBIN,TOTAL 0.6 MG/DL (0.2-1.0); BLOOD UREA NITROGEN 15 MG/DL (7-18); CALCIUM LEVEL 9.6 MG/DL (8.8-10.2); CARBON DIOXIDE LEVEL 25 MEQ/L (21-32); CHLORIDE LEVEL 102 MEQ/L (98-107); CHOLESTEROL LEVEL 135 MG/DL (<200); CHOLESTEROL RISK RATIO 3.857 (<5); CREATININE FOR GFR 0.93 MG/DL (0.70-1.30); GLOMERULAR FILTRATION RATE > 60.0 (>49); GLUCOSE, FASTING 118 MG/DL (70-100); HDL CHOLESTEROL 35 MG/DL (>40); LDL CHOLESTEROL 77 MG/DL (<100); NON-HDL-C 100 MG/DL; POTASSIUM SERUM 4.3 MEQ/L (3.5-5.1); SODIUM LEVEL 134 MEQ/L (136-145); TRIGLYCERIDES LEVEL 113 MG/DL (<150)
[2022-02-24 16:13] LABS: TOTAL 25(OH) VITAMIN D 18.8 NG/ML (30.0-100.0)
[2022-02-24 16:26] LABS: HEMOGLOBIN A1c 5.6 %
== END ==
LOC: M SFHCCAPE 07:51
PROVIDERS: ATTEND Physician Assistant
DX: R73.01 Impaired fasting glucose (principal); I10 Essential (primary) hypertension; D69.6 Thrombocytopenia, unspecified; E55.9 Vitamin D deficiency, unspecified; Z12.5 Encounter for screening for malignant neoplasm of prostate

== ENCOUNTER → 2022-12-30 | Outpatient (REF) | payer MEDICARE, BC ==
[2022-12-30 11:43] LABS: APPEARANCE, URINE CLEAR (CLEAR); BACTERIA, URINE AUTO NEGATIVE (NEGATIVE); BILIRUBIN, URINE AUTO NEGATIVE (NEGATIVE); BLOOD, URINE BLOOD 1+ (NEGATIVE); COLOR, URINE YELLOW (YELLOW); GLUCOSE, URINE (UA) AUTO NEGATIVE (NEGATIVE); KETONE, URINE AUTO NEGATIVE (NEGATIVE); LEUKOCYTE ESTERASE, URINE AUTO NEGATIVE (NEGATIVE); NITRITE, URINE AUTO NEGATIVE (NEGATIVE); PROTEIN, URINE AUTO NEGATIVE (NEGATIVE); RBC, URINE AUTO 5 /HPF (0-3); SPECIFIC GRAVITY URINE AUTO 1.015 (1.002-1.035); SQUAMOUS EPITHELIAL CELL UR AU 0 /HPF (0-6); WBC, URINE AUTO 0 /HPF (0-3)
[2022-12-30 11:48] LABS: ALBUMIN 3.7 G/DL (3.2-5.2); ALKALINE PHOSPHATASE 72 U/L (46-116); ALT/SGPT 20 U/L (7.0-40); AST/SGOT 15 U/L (<34); BASO # 0.1 10^3/uL (0.0-0.2); BASO % 0.8 % (0.0-1.0); BILIRUBIN,TOTAL 0.5 MG/DL (0.3-1.2); BLOOD UREA NITROGEN 16 MG/DL (9-23); CALCIUM LEVEL 9.1 MG/DL (8.3-10.6); CARBON DIOXIDE LEVEL 28 MMOL/L (20-31); CHLORIDE LEVEL 102 MMOL/L (98-107); CHOLESTEROL LEVEL 141 MG/DL (<200); CHOLESTEROL RISK RATIO 3.56 (<5); CREATININE FOR GFR 0.86 MG/DL (0.70-1.30); EOS # 0.2 10^3/uL (0.0-0.5); EOS % 3.3 % (0.0-3.0); GLOMERULAR FILTRATION RATE > 60.0 (>49); GLUCOSE, FASTING 113 MG/DL (74-106); HDL CHOLESTEROL 39.6 MG/DL (>40); HEMATOCRIT 44.8 % (42.0-52.0); HEMOGLOBIN 15.8 g/dl (13.5-17.5); LDL CHOLESTEROL 88.4 MG/DL (<100); LYMPH # 2.1 10^3/uL (1.5-5.0); LYMPH % 30.9 % (24.0-44.0); MEAN CORPUSCULAR HEMOGLOBIN 31.3 pg (27.0-33.0); MEAN CORPUSCULAR HGB CONC 35.3 g/dl (32.0-36.5); MEAN CORPUSCULAR VOLUME 88.7 fl (80.0-96.0); MONO # 0.5 10^3/uL (0.0-0.8); MONO % 7.4 % (2.0-8.0); NEUTROPHILS # 3.8 10^3/uL (1.5-8.5); NON-HDL-C 101.4 MG/DL; PLATELET COUNT, AUTOMATED 134 10^3/uL (150-450); POTASSIUM SERUM 3.9 MMOL/L (3.5-5.1); RED BLOOD COUNT 5.05 10^6/uL (4.30-6.10); SODIUM LEVEL 136 MMOL/L (136-145); THYROID STIMULATING HORMONE 3.709 uIU/ML (0.55-4.78); TOTAL PROTEIN 6.3 G/DL (5.7-8.2); TRIGLYCERIDES LEVEL 65 MG/DL (<150); WHITE BLOOD COUNT 6.7 10^3/uL (4.0-10.0)
[2022-12-30 12:01] LABS: HEMOGLOBIN A1c 5.2 % (4.0-6.0)
== END ==
LOC: M SFHCCLAY 07:20
PROVIDERS: ATTEND Physician Assistant
DX: Z12.5 Encounter for screening for malignant neoplasm of prostate (principal); I10 Essential (primary) hypertension
CPT/HCPCS: 80053; 80061; 81001; 82306; 83036; 84443; 85025; G0103

== ENCOUNTER → 2023-05-04 | Outpatient (REF) | payer MEDICARE, BC ==
[2023-05-04 11:43] LABS: APPEARANCE, URINE CLEAR (CLEAR); BACTERIA, URINE AUTO NEGATIVE (NEGATIVE); BILIRUBIN, URINE AUTO NEGATIVE (NEGATIVE); BLOOD, URINE BLOOD 2+ (NEGATIVE); COLOR, URINE YELLOW (YELLOW); GLUCOSE, URINE (UA) AUTO NEGATIVE (NEGATIVE); KETONE, URINE AUTO NEGATIVE (NEGATIVE); LEUKOCYTE ESTERASE, URINE AUTO NEGATIVE (NEGATIVE); MUCUS, URINE SMALL (NEGATIVE); NITRITE, URINE AUTO NEGATIVE (NEGATIVE); PROTEIN, URINE AUTO NEGATIVE (NEGATIVE); RBC, URINE AUTO 0 /HPF (0-3); SPECIFIC GRAVITY URINE AUTO 1.012 (1.002-1.035); SQUAMOUS EPITHELIAL CELL UR AU 0 /HPF (0-6); UROBILINOGEN, URINE AUTO 0.2 mg/dL (0.0-2.0); WBC, URINE AUTO 0 /HPF (0-3)
== END ==
LOC: M SFHCLERA 08:01
PROVIDERS: ATTEND Physician Assistant
DX: R35.0 Frequency of micturition (principal)

== ENCOUNTER → 2023-05-26 | Outpatient (CLI) | payer MEDICARE, BC | LOC: M RAD 16:08 | PROVIDERS: ATTEND Physician Assistant | DX: F17.210 Nicotine dependence, cigarettes, uncomplicated (principal) ==

== ENCOUNTER → 2023-11-03 | Outpatient (REF) | payer MEDICARE, BC ==
[2023-11-03 12:49] LABS: RSV AMPLIFICATION POSITIVE (NEGATIVE)
== END ==
LOC: M SFHCLERA 11:17
PROVIDERS: ATTEND Physician Assistant
DX: J22 Unspecified acute lower respiratory infection (principal)

== ENCOUNTER → 2023-12-05 | Outpatient (REF) | payer MEDICARE, BC ==
[2023-12-05 12:32] LABS: BASO # 0.1 10^3/uL (0.0-0.2); BASO % 0.7 % (0.0-1.0); EOS # 0.4 10^3/uL (0.0-0.5); EOS % 4.6 % (0.0-3.0); HEMATOCRIT 49.4 % (42.0-52.0); HEMOGLOBIN 17.1 g/dl (13.5-17.5); LYMPH # 2.2 10^3/uL (1.5-5.0); LYMPH % 28.7 % (24.0-44.0); MEAN CORPUSCULAR HEMOGLOBIN 30.9 pg (27.0-33.0); MEAN CORPUSCULAR HGB CONC 34.6 g/dl (32.0-36.5); MEAN CORPUSCULAR VOLUME 89.3 fl (80.0-96.0); MONO # 0.6 10^3/uL (0.0-0.8); MONO % 7.4 % (2.0-8.0); NEUTROPHILS # 4.4 10^3/uL (1.5-8.5); NEUTROPHILS % 58.1 % (36.0-66.0); PLATELET COUNT, AUTOMATED 163 10^3/uL (150-450); RED BLOOD COUNT 5.53 10^6/uL (4.30-6.10); WHITE BLOOD COUNT 7.6 10^3/uL (4.0-10.0)
[2023-12-05 12:50] LABS: HEMOGLOBIN A1c 5.5 % (4.0-6.0)
[2023-12-05 12:52] LABS: PSA SCREENING 2.99 NG/ML (< 4.00)
[2023-12-05 12:56] LABS: THYROID STIMULATING HORMONE 2.688 uIU/ML (0.55-4.78)
[2023-12-05 12:58] LABS: TOTAL 25(OH) VITAMIN D 18.1 NG/ML (20.0-100.0)
[2023-12-05 13:00] LABS: ALKALINE PHOSPHATASE 87 U/L (46-116); ALT/SGPT 20 U/L (7.0-40); AST/SGOT 17 U/L (<34); BILIRUBIN,TOTAL 0.7 MG/DL (0.3-1.2); BLOOD UREA NITROGEN 17 MG/DL (9-23); CALCIUM LEVEL 9.1 MG/DL (8.3-10.6); CARBON DIOXIDE LEVEL 24 MMOL/L (20-31); CHLORIDE LEVEL 106 MMOL/L (98-107); CHOLESTEROL LEVEL 138 MG/DL (<200); CHOLESTEROL RISK RATIO 4.84 (<5); CREATININE FOR GFR 0.91 MG/DL (0.70-1.30); GLOMERULAR FILTRATION RATE > 60.0 (>49); GLUCOSE, FASTING 120 MG/DL (74-106); HDL CHOLESTEROL 28.5 MG/DL (>40); LDL CHOLESTEROL 83.7 MG/DL (<100); NON-HDL-C 109.5 MG/DL; POTASSIUM SERUM 4.4 MMOL/L (3.5-5.1); SODIUM LEVEL 136 MMOL/L (136-145); TOTAL PROTEIN 6.8 G/DL (5.7-8.2); TRIGLYCERIDES LEVEL 129 MG/DL (<150)
== END ==
LOC: M SFHCCLAY 07:08
PROVIDERS: ATTEND Physician Assistant
DX: I10 Essential (primary) hypertension (principal); N40.0 Benign prostatic hyperplasia without lower urinary tract symptoms; R73.01 Impaired fasting glucose; D69.6 Thrombocytopenia, unspecified; E55.9 Vitamin D deficiency, unspecified; Z12.5 Encounter for screening for malignant neoplasm of prostate
CPT/HCPCS: 80053; 80061; 82306; 83036; 84443; 85025; G0103

== ENCOUNTER 2024-02-10 02:08 | Emergency (ER) | payer MEDICARE, BC ==
[~2024-02-10] VITALS: Ht 177.8 cm; Wt 118.0 kg
[2024-02-10] MEDS: METOPROLOL 5 MG/5 ML VIAL IV SCH (02:20)
[2024-02-10 02:42] LABS: BASO % 0.5 % (0.0-1.0); EOS # 0.3 10^3/uL (0.0-0.5); EOS % 3.6 % (0.0-3.0); HEMATOCRIT 44.1 % (42.0-52.0); HEMOGLOBIN 15.7 g/dl (13.5-17.5); LYMPH # 1.8 10^3/uL (1.5-5.0); LYMPH % 22.3 % (24.0-44.0); MEAN CORPUSCULAR HGB CONC 35.6 g/dl (32.0-36.5); MONO # 0.4 10^3/uL (0.0-0.8); MONO % 5.1 % (2.0-8.0); NEUTROPHILS # 5.6 10^3/uL (1.5-8.5); NEUTROPHILS % 68.1 % (36.0-66.0); PLATELET COUNT, AUTOMATED 139 10^3/uL (150-450); RED BLOOD COUNT 5.07 10^6/uL (4.30-6.10); WHITE BLOOD COUNT 8.3 10^3/uL (4.0-10.0)
[2024-02-10 03:07] LABS: BLOOD UREA NITROGEN 18 MG/DL (9-23); CALCIUM LEVEL 8.5 MG/DL (8.3-10.6); CARBON DIOXIDE LEVEL 20 MMOL/L (20-31); CHLORIDE LEVEL 106 MMOL/L (98-107); CK-MB VALUE MASS 1.9 NG/ML (<3.6); CPK CREATINE PHOSPHOKINASE 84 U/L (46-171); CREATININE FOR GFR 0.84 MG/DL (0.70-1.30); GLOMERULAR FILTRATION RATE > 60.0 (>49); GLUCOSE, FASTING 144 MG/DL (74-106); MAGNESIUM LEVEL 1.8 MG/DL (1.8-2.4); MB/CK RELATIVE INDEX 2.26 (< OR =4); POTASSIUM SERUM 3.9 MMOL/L (3.5-5.1); SODIUM LEVEL 137 MMOL/L (136-145)
[2024-02-10] MEDS: DIGOXIN INJ 0.5 MG/2 ML AMP IV ONE (03:16)
[2024-02-10] MEDS: atenoloL 50 MG TAB PO ONE (04:25)
[2024-02-10 04:27] LABS: MB/CK RELATIVE INDEX 9.58 (< OR =4)
[2024-02-10] MEDS ORDERED: ISOVUE-370 76% 100ML VIAL As Ordered ONE (04:32)
[2024-02-10] MEDS: atenoloL 25 MG TAB PO ONE ×2 (04:40→06:01)
[2024-02-10] MEDS: ASPIRIN 81MG CHEW TABLET PO ONE (04:51)
[2024-02-10] MEDS: HEPARIN DRIP 25,000 UNITS in IV 1 EA IV SCH (05:32)
[2024-02-10 06:01] VITALS: BP 107/65
[2024-02-10 08:54] VITALS: BP 123/79; TEMP 98.6; O2SAT 98
== END 2024-02-10 09:03 | disposition short-term general hospital (02) ==
LOC: EDBD 02:08 → M ED 02:08
DX: I21.4 Non-ST elevation (NSTEMI) myocardial infarction (principal); I48.91 Unspecified atrial fibrillation; Z79.899 Other long term (current) drug therapy
CPT/HCPCS: 71045; 71275; 80048; 82550; 82553; 83735; 83880; 84484; 85025; 85730; 87486; 87581; 87633; 87798; 93005; 96374; 96375; 99285; J1160; Q9967

== ENCOUNTER → 2024-04-02 | Outpatient (REF) | payer MEDICARE, BC ==
[2024-04-02 12:49] LABS: ALBUMIN 3.9 G/DL (3.2-5.2); ALKALINE PHOSPHATASE 90 U/L (46-116); ALT/SGPT 37 U/L (7.0-40); AST/SGOT 15 U/L (<34); BILIRUBIN,TOTAL 0.5 MG/DL (0.3-1.2); BLOOD UREA NITROGEN 18 MG/DL (9-23); CALCIUM LEVEL 9.2 MG/DL (8.3-10.6); CARBON DIOXIDE LEVEL 29 MMOL/L (20-31); CHLORIDE LEVEL 103 MMOL/L (98-107); CHOLESTEROL LEVEL 93 MG/DL (<200); CHOLESTEROL RISK RATIO 2.25 (<5); CREATININE FOR GFR 0.86 MG/DL (0.70-1.30); GLOMERULAR FILTRATION RATE > 60.0 (>49); GLUCOSE, FASTING 114 MG/DL (74-106); HDL CHOLESTEROL 41.2 MG/DL (>40); NON-HDL-C 51.8 MG/DL; SODIUM LEVEL 136 MMOL/L (136-145); TOTAL PROTEIN 6.5 G/DL (5.7-8.2); TRIGLYCERIDES LEVEL 124 MG/DL (<150)
== END ==
LOC: M LABDRAWC 11:43
PROVIDERS: ATTEND Internal Medicine Cardiovascular Disease
DX: I10 Essential (primary) hypertension (principal); E78.5 Hyperlipidemia, unspecified; I25.10 Atherosclerotic heart disease of native coronary artery without angina pectoris; I25.83 Coronary atherosclerosis due to lipid rich plaque

== ENCOUNTER 2024-04-23 12:47 | Emergency (ER) | payer MEDICARE, BC ==
[~2024-04-23] VITALS: Ht 177.8 cm; Wt 106.7 kg
[2024-04-23] MEDS: methocarbamoL 500 MG TAB PO ONE (18:12)
[2024-04-23] MEDS: ACETAMINOPHEN TAB 650MG DOSE (2X325MG) PO ONE (18:12)
[2024-04-23] MEDS: LIDOCAINE 5% (LIDODERM) PATCH TD ONE (18:12)
[2024-04-23] MEDS ORDERED: LIDO5DIS41 TD (18:52)
[2024-04-23] MEDS ORDERED: METH-1164 PO (18:53)
[2024-04-23 18:59] VITALS: BP 134/78; TEMP 98; O2SAT 97
== END 2024-04-23 19:00 | disposition home or self-care (01) ==
LOC: M ED 12:47
DX: M62.838 Other muscle spasm (principal); I25.2 Old myocardial infarction; I10 Essential (primary) hypertension; Z90.89 Acquired absence of other organs; Z87.891 Personal history of nicotine dependence; Z79.899 Other long term (current) drug therapy

== ENCOUNTER → 2024-05-08 | Outpatient (REF) | payer MEDICARE, BC ==
[~2024-05-08] MED LIST changes: +LIDO5DIS41 TD; +METH-1164 PO
== END ==
LOC: M SFHCCAPE 08:09
PROVIDERS: ATTEND Physician Assistant Medical
DX: I25.10 Atherosclerotic heart disease of native coronary artery without angina pectoris (principal); N40.0 Benign prostatic hyperplasia without lower urinary tract symptoms

== ENCOUNTER → 2024-05-30 | Outpatient (REF) | payer MEDICARE, BC ==
[2024-05-30 18:03] LABS: APPEARANCE, URINE CLEAR (CLEAR); BACTERIA, URINE AUTO NEGATIVE (NEGATIVE); BILIRUBIN, URINE AUTO NEGATIVE (NEGATIVE); BLOOD, URINE BLOOD NEGATIVE (NEGATIVE); COLOR, URINE YELLOW (YELLOW); GLUCOSE, URINE (UA) AUTO NEGATIVE (NEGATIVE); KETONE, URINE AUTO NEGATIVE (NEGATIVE); LEUKOCYTE ESTERASE, URINE AUTO NEGATIVE (NEGATIVE); NITRITE, URINE AUTO NEGATIVE (NEGATIVE); PROTEIN, URINE AUTO NEGATIVE (NEGATIVE); RBC, URINE AUTO 2 /HPF (0-3); SPECIFIC GRAVITY URINE AUTO 1.011 (1.002-1.035); SQUAMOUS EPITHELIAL CELL UR AU 0 /HPF (0-6); UROBILINOGEN, URINE AUTO 0.2 mg/dL (0.0-2.0); WBC, URINE AUTO 1 /HPF (0-3)
== END ==
LOC: M SFHCCLAY 13:18
PROVIDERS: ATTEND Physician Assistant Medical
DX: N40.0 Benign prostatic hyperplasia without lower urinary tract symptoms (principal); R35.1 Nocturia

== ENCOUNTER → 2024-11-19 | Outpatient (REF) | payer MEDICARE, BC ==
[2024-11-19 17:29] LABS: BASO % 0.5 % (0.0-1.0); EOS # 0.1 10^3/uL (0.0-0.5); EOS % 2.1 % (0.0-3.0); HEMATOCRIT 43.5 % (42.0-52.0); HEMOGLOBIN 15.1 g/dl (13.5-17.5); LYMPH # 1.5 10^3/uL (1.5-5.0); LYMPH % 22.1 % (24.0-44.0); MEAN CORPUSCULAR HEMOGLOBIN 30.8 pg (27.0-33.0); MEAN CORPUSCULAR HGB CONC 34.7 g/dl (32.0-36.5); MEAN CORPUSCULAR VOLUME 88.8 fl (80.0-96.0); MONO # 0.5 10^3/uL (0.0-0.8); MONO % 8.2 % (2.0-8.0); NEUTROPHILS # 4.4 10^3/uL (1.5-8.5); NEUTROPHILS % 66.8 % (36.0-66.0); PLATELET COUNT, AUTOMATED 132 10^3/uL (150-450); WHITE BLOOD COUNT 6.6 10^3/uL (4.0-10.0)
[2024-11-19 17:57] LABS: HEMOGLOBIN A1c 4.9 % (4.0-6.0)
[2024-11-19 18:30] LABS: PSA SCREENING 2.61 NG/ML (< 4.00)
[2024-11-19 18:34] LABS: ALBUMIN 3.9 G/DL (3.2-5.2); ALKALINE PHOSPHATASE 82 U/L (40-129); ALT/SGPT 30 U/L (7.0-40); AST/SGOT 15 U/L (<34); BILIRUBIN,TOTAL 0.9 MG/DL (0.3-1.2); BLOOD UREA NITROGEN 19 MG/DL (9-23); CALCIUM LEVEL 9.5 MG/DL (8.3-10.6); CARBON DIOXIDE LEVEL 27 MMOL/L (20-31); CHLORIDE LEVEL 103 MMOL/L (98-107); CHOLESTEROL LEVEL 68 MG/DL (<200); CHOLESTEROL RISK RATIO 1.82 (<5); CREATININE FOR GFR 0.97 MG/DL (0.70-1.30); GLOMERULAR FILTRATION RATE > 60.0 (>49); GLUCOSE, FASTING 101 MG/DL (74-106); HDL CHOLESTEROL 37.2 MG/DL (>40); LDL CHOLESTEROL 18.4 MG/DL (<100); NON-HDL-C 30.8 MG/DL; POTASSIUM SERUM 4.4 MMOL/L (3.5-5.1); SODIUM LEVEL 138 MMOL/L (136-145); TOTAL PROTEIN 6.6 G/DL (5.7-8.2); TRIGLYCERIDES LEVEL 62 MG/DL (<150)
== END ==
LOC: M SFHCCLAY 08:10
PROVIDERS: ATTEND Physician Assistant Medical
DX: K21.9 Gastro-esophageal reflux disease without esophagitis (principal); N40.0 Benign prostatic hyperplasia without lower urinary tract symptoms; D69.6 Thrombocytopenia, unspecified; I25.10 Atherosclerotic heart disease of native coronary artery without angina pectoris; R73.01 Impaired fasting glucose; Z12.5 Encounter for screening for malignant neoplasm of prostate
CPT/HCPCS: 80053; 80061; 83036; 85025; G0103

== ENCOUNTER → 2025-02-18 | Outpatient (CLI) | payer MEDICARE, BC | LOC: M RAD 16:47 | PROVIDERS: ATTEND Physician Assistant Medical | DX: Z87.891 Personal history of nicotine dependence (principal) ==